=== PATIENT | male | born 1955 | race Caucasian/White ===

== ENCOUNTER → 2016-09-27 | Outpatient (CLI) | payer BC ==
[~2016-09-27] MED LIST: AMOX1TAB43 PO; ASPI-435 PO; ATOR-26 PO; BNC40 PO; CYAN10005 PO; DULO60CA44 PO; HYDR200T5 PO; HYDR25TA4 PO; LEFL10TA PO; LISI10TA PO; MELO15TA4 PO; METF-382 PO; METH1TAB81 PO; METO1TAB69 PO; OMEP20CA9 PO; SERT-234 PO; TERB250T47 PO
--- NOTE | 2016-09-27 14:01 | DIAGNOSTIC IMAGING REPORT ---
TWO VIEW CHEST CLINICAL HISTORY: Dyspnea on exertion. FINDINGS: PA and lateral chest radiographs are compared to study dated 10/10/2014 and correlated with chest CT dated 11/04/2012. The heart is mildly enlarged. The pulmonary vasculature is noncongested. There is chronic elevation of the right hemidiaphragm and bibasilar atelectasis. No airspace consolidation or pleural effusion is seen. There is no pneumothorax. The skeletal structures are osteopenic. Degenerative change is noted in the thoracic spine. Erosion of the distal right clavicle is unchanged from previous. IMPRESSION: Mild cardiac enlargement with no active disease in the chest. Electronically signed by: David Morris M.D. 09/27/2016 1:59 PM Dictated Date/Time: 09/27/2016 1:56 PM
[2016-09-27 15:18] LABS: BLOOD UREA NITROGEN 20 mg/dl (7-18)
--- NOTE | 2016-09-27 15:39 | DIAGNOSTIC IMAGING REPORT ---
CT ANGIOGRAM OF THE CHEST CLINICAL HISTORY: Dyspnea on exertion. COMPARISON STUDY: Chest CT dated 11/04/2012. TECHNIQUE: Following the IV administration of 107 cc of Optiray 320, CT angiogram of the chest was performed from the upper abdomen to the thoracic inlet utilizing the pulmonary embolus protocol. Images are reviewed in the axial, sagittal, and coronal planes. 3-D MIPS images are created and assessed. IV contrast was administered without complication. CT DOSE: 489.53 mGycm FINDINGS: Thyroid: Imaged portions of the thyroid gland are normal in size and attenuation. Thoracic aorta: The thoracic aorta is normal in caliber and demonstrates standard 3-vessel arch anatomy. The thoracic aorta is not well opacified. Pulmonary vasculature: The pulmonary trunk is normal in caliber. There are no filling defects identified in main, lobar, or segmental pulmonary branches to suggest pulmonary embolus. Heart: The heart is enlarged and there is a small pericardial effusion. Lungs and pleural spaces: There is bibasilar atelectasis. No airspace consolidation or pleural effusion is identified. A 3 mm right lower lobe pulmonary nodule seen on image #90 is unchanged from 2013 and of doubtful significance. The trachea and central airways are clear. Mediastinum: There is no mediastinal lymphadenopathy. Marlen: Clear. Axillae: There is no axillary lymphadenopathy. Upper abdomen: Partially visualized upper abdominal viscera is within normal limits. Skeletal structures: The skeletal structures are osteopenic. Degenerative change is noted throughout the thoracic spine. No lytic or blastic bony lesions are seen. IMPRESSION: 1. There is no evidence of pulmonary embolus in the main, lobar, or segmental pulmonary arteries. 2. Cardiomegaly noting a small pericardial effusion. 3. Dependent atelectasis is noted. There is no airspace consolidation or pleural effusion. Electronically signed by: David Morris M.D. 09/27/2016 3:37 PM Dictated Date/Time: 09/27/2016 3:33 PM
== END | disposition home or self-care (01) ==
LOC: C.CTS 13:35
PROVIDERS: ATTEND Internal Medicine
DX: E11.9 Type 2 diabetes mellitus without complications (principal); R06.02 Shortness of breath; I51.7 Cardiomegaly; I31.3 Pericardial effusion (noninflammatory); J98.11 Atelectasis

== ENCOUNTER → 2016-09-29 | Outpatient (CLI) | payer BC ==
[2016-09-29 15:54] LABS: BASO % 0.8 %; BASO ABS # 0.05 K/uL (0-0.2); COMPLETE YES; HEMATOCRIT 39.4 % (42-52); IG% 0.2 %; LYMPH % 24.6 %; LYMPH ABS # 1.48 K/uL (1.2-3.4); MEAN CELL VOLUME 82.3 fL (80-100); MEAN CORPUSCULAR HEMOGLOBIN 28.6 pg (25-34); MEAN CORPUSCULAR HGB CONC 34.8 g/dl (32-36); MEAN PLATELET VOLUME 11.6 fL (7.4-10.4); MONO % 7.8 %; NEUT % 62.6 %; PLATELET COUNT 132 K/uL (130-400); RED BLOOD COUNT 4.79 M/uL (4.7-6.1); WHITE BLOOD COUNT 6.01 K/uL (4.8-10.8)
[2016-09-29 18:45] LABS: ALKALINE PHOSPHATASE 80 U/L (45-117); ALT/SGPT 34 U/L (12-78); AST/SGOT 25 U/L (15-37)
== END | disposition home or self-care (01) ==
LOC: C.LAB 14:20
PROVIDERS: ATTEND Internal Medicine Rheumatology
DX: R76.8 Other specified abnormal immunological findings in serum (principal); M05.9 Rheumatoid arthritis with rheumatoid factor, unspecified; Z79.899 Other long term (current) drug therapy

== ENCOUNTER → 2016-10-21 | Outpatient (CLI) | payer BC ==
[~2016-10-21] MED LIST changes: +REGADENOSON 0.4 MG/5 ML SYR ONE
--- NOTE | 2016-10-24 19:22 | MYOCARDIAL PERFUSION SCAN ---
ORDERING PHYSICIAN: Talon Dao M.D. PRIMARY CARE PHYSICIAN: Nolberto Maurice M.D. PROCEDURE: 1. Myocardial perfusion study performed in multiple views/images. 2. Lexiscan pharmacologic stress ECG. INDICATIONS: Shortness of breath. ELECTROCARDIOGRAM AND VITALS: Baseline ECG showed sinus rhythm and was unremarkable. Lexiscan ECG demonstrated no significant ST changes. No dysrhythmias. No chest pain reported. Baseline BP was elevated at 192/105 mmHg. During pharmacologic stress, BP was 194/94 mmHg. PROCEDURAL DETAILS: For the stress portion of the study, Lexiscan 0.4 mg was intravenously administered over 10-15 seconds followed by saline flush. This was followed by 33.1 mCi of Tc-99m Cardiolite IV injected at 0913 a.m. on 10/21/2016. 30 minutes following the injection, imaging of the heart was performed in multiple projections. For the rest portion of the study, 11.2 mCi of Tc-99m Cardiolite was injected IV at 0725 a.m. One hour following the injection, imaging of the heart was performed in the same projections. FINDINGS: Rotating raw imaging demonstrated no significant motion artifact. Heart appeared mildly dilated. There was no significant lung uptake. Myocardial perfusion demonstrated a small apicolateral reversible defect. Based on review of the rotating images, this may represent diaphragmatic attenuation, however a small area of distal LAD ischemia could not be excluded. No fixed defects seen. WALL MOTION: Normal left ventricular size with mild global hypokinesis. Calculated ejection fraction was 41%. IMPRESSION: 1. Abnormal myocardial perfusion suggesting a small area of apicolateral ischemia versus attenuation artifact. 2. Moderately reduced ejection fraction with mild global hypokinesis (EF=41%). 3. No chest pain. 4. Hypertension noted. 5. No dysrhythmias. 6. Negative Lexiscan ECG. [facility]
== END | disposition home or self-care (01) ==
LOC: C.NUCL 06:37
PROVIDERS: ATTEND Internal Medicine Cardiovascular Disease
DX: R06.02 Shortness of breath (principal); M19.90 Unspecified osteoarthritis, unspecified site

== ENCOUNTER → 2016-11-04 | Outpatient (CLI) | payer BC ==
[~2016-11-04] MED LIST changes: -REGADENOSON 0.4 MG/5 ML SYR ONE
[2016-11-04 13:18] LABS: BASO % 0.8 %; BASO ABS # 0.03 K/uL (0-0.2); COMPLETE YES; EOS % 5.9 %; HEMATOCRIT 41.7 % (42-52); IG% 0.5 %; LYMPH % 36.4 %; LYMPH ABS # 1.41 K/uL (1.2-3.4); MEAN CELL VOLUME 84.9 fL (80-100); MEAN CORPUSCULAR HEMOGLOBIN 28.7 pg (25-34); MEAN CORPUSCULAR HGB CONC 33.8 g/dl (32-36); MEAN PLATELET VOLUME 11.2 fL (7.4-10.4); MONO % 8.8 %; NEUT % 47.6 %; PLATELET COUNT 126 K/uL (130-400); RED BLOOD COUNT 4.91 M/uL (4.7-6.1); WHITE BLOOD COUNT 3.87 K/uL (4.8-10.8)
[2016-11-04 13:25] LABS: PARTIAL THROMBOPLASTIN RATIO 1.1; PROTHROMBIN TIME (PATIENT) 10.6 SECONDS (9.0-12.0)
[2016-11-04 13:49] LABS: BLOOD UREA NITROGEN 22 mg/dl (7-18); BUN/CREATININE RATIO 18.6 (10-20); CALCIUM 8.7 mg/dl (8.5-10.1); CARBON DIOXIDE 28 mmol/L (21-32); CHLORIDE 103 mmol/L (98-107); GLUCOSE 167 mg/dl (70-99); SODIUM 142 mmol/L (136-145)
== END | disposition home or self-care (01) ==
LOC: C.LAB 11:38
PROVIDERS: ATTEND Internal Medicine
DX: Z01.818 Encounter for other preprocedural examination (principal); M06.4 Inflammatory polyarthropathy

== ENCOUNTER → 2016-11-09 | Day surgery (SDC) | payer BC ==
[~2016-11-09] VITALS: Ht 175.3 cm; Wt 108.5 kg
[~2016-11-09] MED LIST changes: +FENTANYL CITRATE INJ 50 MCG/1 ML 2 ML VIAL ONE; +HEPARIN SOD (PORCINE) 1000 UNIT/ML 10 ML VIAL ONE; +MIDAZOLAM HCL 1 MG/ML 2ML VIAL ONE; +NITROGLYCERIN/D5W 100MCG/ML 20ML SYR ONE; +NiCARDipine HCL INJ 2.5 MG/ML 10 ML AMP ONE
[2016-11-09 09:57] VITALS: Ht 175.3 cm; Wt 108.5 kg
[2016-11-09 10:06] VITALS: BP 168/80; PULSE 59; TEMP 36.5; O2SAT 96
--- NOTE | 2016-11-09 11:11 | History & Physical Bridge Note ---
H&P Re-Evaluation Bridge Note: I have examined the patient, reviewed the History & Physical and in the interval since the performance of the History & Physical I have noted the following changes of clinical significance: No changes noted
--- NOTE | 2016-11-09 11:12 | Procedure Note ---
Pre-Mod Sedation Assessment General Date of Moderate Sedation: Nov 09, 2016. Vital Signs: Vital Signs Past 12 Hours Date Time Temp Pulse Resp B/P Pulse Ox O2 Delivery O2 Flow Rate FiO2 11/09/16 10:06 36.5 59 16 168/80 96 Room Air Review Cardiovascular: regular rate, rhythm, no edema, no gallop Abdomen: soft Lungs: chest non-tender, lungs clear, no respiratory distress Airway Class: II Pre-Sedation Airway Assessment Oral Cavity: Dentures Able to Visualize Vocal Cords: Yes Short Thick Neck: No Hx of Sleep Apnea: No Smoking Status: Former Smoker Mallampati Classification: Class II ASA Classification: Class II Procedure Planning Contraindications-for Mod Sed: None Yes Notes The planned sedation has been discussed with the patient and consent obtained. I have identified the patient, determined the appropriateness of sedation and have assessed the patient immediately prior to the procedure. All medicine(s) and interventions are by my order.
--- NOTE | 2016-11-09 11:37 | Procedure Note ---
Post-Mod Sedation Assessment General Date of Moderate Sedation Nov 09, 2016. Vital Signs: Vital Signs Past 12 Hours Date Time Temp Pulse Resp B/P Pulse Ox O2 Delivery O2 Flow Rate FiO2 11/09/16 10:06 36.5 59 16 168/80 96 Room Air Review - Discharge Criteria Vital Signs Stable: Yes Alert/Oriented/Conversant: Yes Returned to Baseline Mental St: Yes Nausea Absent/Minimal: Yes Pain/Discomfort/Absent/Minimal: Yes Normal/Baseline Respirations: Yes Active Bleeding?: No Pt Received D/C Instructions: Yes Prescriptions Given: None Specific Proced. D/C Criteria Distal Pulses Present (Cardiac: Yes Groin site assessed-Card Cath: N/A Voided Prior To Discharge: Yes Discharged Patients Adult Escort/Transportation: Yes
--- NOTE | 2016-11-09 11:50 | Discharge Instructions ---
Discharge Instructions Procedure Procedure Date: Nov 09, 2016. Reason for Visit: Chest Pain Dr Wynn To Do. Discharge Discharge Date: Nov 09, 2016. Last Recorded Wt (Kilograms): 108.5 Medications Stopped Medication(s): Hold metformin for 48 hours Instructions Allergies: Coded Allergies: LETICIA Inhibitors (Unverified Allergy, Intermediate, SHORTNESS OF BREATH, 03/23) Follow Up Additional Instructions: ACTIVITY RECOMMENDATIONS: It is common to feel weak and fatigue for a few days. * Do not drive or operate any motorized equipment for the next three days. * Limit stair usage (2 or 3 trips a day only) for the next three days. * Do not lift anything heavier than 10 pounds for the next three days. * Do not engage in vigorous exercise or any sports for the next five days. * You may shower the day after your procedure, but do not immerse the area for three days. Cleanse the site gently with soap and water. SPECIAL CARE INSTRUCTIONS: * You may replace the pressure dressing or band-aid the morning after the procedure. * After your procedure, it is normal to have a small bruise or small lump at the site. Examine your site daily for any change in the bruise or lump, redness, swelling, drainage or numbness. Notify your doctor if any change. BLEEDING: * If there is a small amount of bleeding at the site, lie down and apply firm pressure with a clean cloth for ten minutes. When the bleeding stops, lie quietly keeping the procedure limb straight for six hours. Notify your doctor as soon as possible. * If the bleeding does not stop after ten minutes or if there is a large amount of bleeding or spurting, call 911 immediately. Continue to lie down and hold firm pressure until help arrives. SKIN IRRITATION: * You may experience some redness and/or swelling in the area where radiation was administered. If any skin irritation occurs, please contact your family physician. FOLLOW UP VISIT: Keep any scheduled doctor appointments. Follow-up with: As scheduled with Neelam Croft in [facility] Recommendations: Call your doctor if: * Temperature above 101 degrees * Pain not relieved by pain medicine ordered * There is increased drainage or redness from any incision * You have any unanswered questions or concerns. Your Doctors Instructions noted above were prepared by provider Gregory Wynn. Patient Signature Section: Patient Instructions Signature Page Ramone Sun Patient (or Guardian) Signature/Date: I have read and understand the instructions given to me by my caregivers. Caregiver/RN/Doctor Signature/Date: The above-named patient and/or guardian has received patient instructions on this date. + Original Patient Signature Page (only) stays with chart. Please make copy for patient.
--- NOTE | 2016-11-09 12:01 | Cardiac Catheterization ---
Procedure Note Procedure Date Nov 09, 2016. Pre-Procedure Diagnosis Angina, Positive Stress Test AUC Score 7 Post-Procedure Diagnosis Mild CAD, Elevated Intracardiac Pressures Procedure(s) Performed Coronary Angiography, Left Heart Cath Manager Voice Dr. Wynn Hamper Maker Machine(s) Óscar Estimated Blood Loss 10 Medication(s) Fentanyl, Heparin, Nicardipine, Nitroglycerin, Versed, Lidocaine 1% Summary of Findings Indication: Chest pain/ Positive stress test Access: 6Fr Right Radial Artery Catheters: [place], JR4 Findings: LM - Short, angiographically normal LAD - Moderate caliber, 10-20% ostial stenosis, luminal irregularities, tapers in mid segment Circumflex - Large, non-dominant, angiographically normal RCA - Dominant, angiographically normal LVEDP - 22 Arterial Closure: TR Band Summary: 1. Minimal coronary artery disease (False positive stress test) - 10-20% ostial LAD otherwise vessels are angiographically normal and unchanged from 2013 2. Elevated intracardiac filling pressures (LVEDP 22) Recommendations: Improved blood pressure control - will increase recently started lisinopril from 5mg to 10mg Continue current metoprolol, statin, and aspirin. Follow-up with Cardiology clinic as scheduled. Hemodynamics Rest Ao: 163/96/125 Final Ao: 180/94/129 LV: 164/22 Recommendations Medical therapy and/or Counseling Specimens None Radiation Exposure (mGy) 1008 Contrast (mls) 80 Fluids (cc crystalloids) 59 Drains none Anesthesia moderate Procedural Complication(s) None Disposition Line Service Technician Holding/Recovery ACC Data Cardiac Status Clinical evaluation leading to the procedure CAD Presntation: Positive Stress Test Anginal Classification: CCS III Heart Failure: No, NYHA Class: CCS I Cardiogenic Shock w/in 24Hrs: No Cardiac Arrest w/in 24Hrs: No Imaging studies past 6 months: Yes Stress studies past 6 months: Yes Standard Exercise Stress Test: No Stress Echocardiogram: No Stress Testing w/SPECT MPI: Yes - Positive Cardiac CTA: No Coronary Anatomy Dominant: Right Left Main (% Stenosis): Normal LAD (% Stenosis): Ostial (10-20) Circumflex (% Stenosis): Normal RCA (% Stenosis): Normal Diagnostic Physician's Name: Nolberto Wynn MD Closure Device Percutaneous Entry Location: Radial Closure Device: Radial Band Recommendations: Medical therapy and/or Counseling Intraprocedure Events Significant Dissection: No Perforation: No
[2016-11-09 14:00] VITALS: BP 142/92; PULSE 63; O2SAT 95
== END | disposition home or self-care (01) ==
LOC: C.CATH 09:38
PROVIDERS: ATTEND Internal Medicine Interventional Cardiology
DX: I25.119 Atherosclerotic heart disease of native coronary artery with unspecified angina pectoris (principal); I10 Essential (primary) hypertension; R06.02 Shortness of breath; D64.9 Anemia, unspecified; N40.0 Benign prostatic hyperplasia without lower urinary tract symptoms; K76.0 Fatty (change of) liver, not elsewhere classified; Z79.899 Other long term (current) drug therapy; E11.9 Type 2 diabetes mellitus without complications; R25.1 Tremor, unspecified; M35.00 Sjogren syndrome, unspecified; M05.9 Rheumatoid arthritis with rheumatoid factor, unspecified; Z87.891 Personal history of nicotine dependence

== ENCOUNTER → 2016-12-29 | Outpatient (CLI) | payer BC ==
[~2016-12-29] MED LIST changes: -AMOX1TAB43 PO; -BNC40 PO; -FENTANYL CITRATE INJ 50 MCG/1 ML 2 ML VIAL ONE; -HEPARIN SOD (PORCINE) 1000 UNIT/ML 10 ML VIAL ONE; +METO100T44 PO; -METO1TAB69 PO; -MIDAZOLAM HCL 1 MG/ML 2ML VIAL ONE; -NITROGLYCERIN/D5W 100MCG/ML 20ML SYR ONE; -NiCARDipine HCL INJ 2.5 MG/ML 10 ML AMP ONE
--- NOTE | 2016-12-29 12:10 | DIAGNOSTIC IMAGING REPORT ---
LEFT FOOT MIN 3 VIEWS ROUTINE CLINICAL HISTORY: M15.9 Generalized osteoarthritis of handM35.00 Secondary Sjogren COMPARISON: None. DISCUSSION: The bones and joint spaces appear intact. There is no evidence of fracture, dislocation or bony disease. There is no evidence for soft tissue swelling. IMPRESSION: Negative study. Electronically signed by: Monico Alexis M.D. 12/29/2016 12:08 PM Dictated Date/Time: 12/29/2016 12:06 PM
--- NOTE | 2016-12-29 12:25 | DIAGNOSTIC IMAGING REPORT ---
LEFT FOOT 3 VIEWS HISTORY: M15.9 Generalized osteoarthritis of handM35.00 Secondary Sjogren Right COMPARISON: None. FINDINGS: There is no fracture or dislocation. Soft tissues are unremarkable. Bone mineralization is intact. The Lisfranc joint is well aligned. No erosions identified. Small plantar heel spur. Small dorsal osteophytes within the talus and the navicular bones. Minimal degenerative changes at the first MTP joint. IMPRESSION: Minimal osteoarthritis. Small plantar heel spur. Electronically signed by: Kelvin Hubbard M.D. 12/29/2016 12:23 PM Dictated Date/Time: 12/29/2016 12:21 PM
[2016-12-29 12:31] LABS: BASO ABS # 0.05 K/uL (0-0.2); COMPLETE YES; EOS % 6.3 %; HEMATOCRIT 44.9 % (42-52); IG% 0.2 %; LYMPH % 35.6 %; MEAN CELL VOLUME 81.2 fL (80-100); MEAN CORPUSCULAR HEMOGLOBIN 28.6 pg (25-34); MEAN CORPUSCULAR HGB CONC 35.2 g/dl (32-36); MEAN PLATELET VOLUME 10.6 fL (7.4-10.4); MONO % 6.5 %; NEUT % 50.4 %; PLATELET COUNT 149 K/uL (130-400); RED BLOOD COUNT 5.53 M/uL (4.7-6.1); WHITE BLOOD COUNT 4.77 K/uL (4.8-10.8)
[2016-12-29 13:49] LABS: ALKALINE PHOSPHATASE 82 U/L (45-117); ALT/SGPT 43 U/L (12-78); AST/SGOT 23 U/L (15-37); BLOOD UREA NITROGEN 24 mg/dl (7-18); BUN/CREATININE RATIO 19.8 (10-20); CALCIUM 9.2 mg/dl (8.5-10.1); CARBON DIOXIDE 23 mmol/L (21-32); CHLORIDE 104 mmol/L (98-107); GLUCOSE 110 mg/dl (70-99); POTASSIUM 3.9 mmol/L (3.5-5.1); SODIUM 137 mmol/L (136-145)
[2016-12-29 13:51] LABS: RHEUMATOID FACTOR < 10.0 U/mL (0-15)
== END ==
LOC: C.RAD1850 11:27
PROVIDERS: ATTEND Internal Medicine Rheumatology
DX: M35.00 Sjogren syndrome, unspecified (principal); M15.9 Polyosteoarthritis, unspecified; Z79.899 Other long term (current) drug therapy; I10 Essential (primary) hypertension; M05.741 Rheumatoid arthritis with rheumatoid factor of right hand without organ or systems involvement; M77.32 Calcaneal spur, left foot; M77.31 Calcaneal spur, right foot

== ENCOUNTER → 2017-02-14 | Outpatient (CLI) | payer BC ==
[2017-02-14 18:12] LABS: BLOOD UREA NITROGEN 34 mg/dl (7-18); BUN/CREATININE RATIO 22.4 (10-20); CARBON DIOXIDE 23 mmol/L (21-32); CHLORIDE 105 mmol/L (98-107); GLUCOSE 151 mg/dl (70-99); POTASSIUM 4.1 mmol/L (3.5-5.1); SODIUM 138 mmol/L (136-145)
[2017-02-14 18:43] LABS: LYME DISEASE AB IGG NEG (NEG); LYME DISEASE AB IGM NEG (NEG)
== END | disposition home or self-care (01) ==
LOC: C.LABBFT 14:29
PROVIDERS: ATTEND Physician Assistant Medical
DX: I10 Essential (primary) hypertension (principal); R53.83 Other fatigue

== ENCOUNTER → 2017-03-20 | Outpatient (CLI) | payer BC ==
[~2017-03-20] MED LIST changes: -METO100T44 PO; +METO1TAB69 PO
[2017-03-20 12:29] LABS: BASO % 1.2 %; BASO ABS # 0.05 K/uL (0-0.2); COMPLETE YES; EOS % 4.7 %; HEMATOCRIT 40.9 % (42-52); IG% 0.5 %; LYMPH % 32.6 %; LYMPH ABS # 1.39 K/uL (1.2-3.4); MEAN CELL VOLUME 85.9 fL (80-100); MEAN CORPUSCULAR HEMOGLOBIN 28.6 pg (25-34); MEAN CORPUSCULAR HGB CONC 33.3 g/dl (32-36); MONO % 12.2 %; NEUT % 48.8 %; PLATELET COUNT 152 K/uL (130-400); RED BLOOD COUNT 4.76 M/uL (4.7-6.1); WHITE BLOOD COUNT 4.26 K/uL (4.8-10.8)
[2017-03-20 13:07] LABS: ALT/SGPT 34 U/L (12-78); AST/SGOT 20 U/L (15-37); BLOOD UREA NITROGEN 22 mg/dl (7-18); BUN/CREATININE RATIO 17.1 (10-20); CALCIUM 8.9 mg/dl (8.5-10.1); CARBON DIOXIDE 21 mmol/L (21-32); CHLORIDE 107 mmol/L (98-107); GLUCOSE 132 mg/dl (70-99); POTASSIUM 4.2 mmol/L (3.5-5.1); SODIUM 138 mmol/L (136-145)
[2017-03-20 13:09] LABS: ALKALINE PHOSPHATASE 81 U/L (45-117)
== END | disposition home or self-care (01) ==
LOC: C.LABBFT 08:04
PROVIDERS: ATTEND Internal Medicine Rheumatology
DX: I10 Essential (primary) hypertension (principal); Z79.899 Other long term (current) drug therapy; M05.741 Rheumatoid arthritis with rheumatoid factor of right hand without organ or systems involvement; M05.742 Rheumatoid arthritis with rheumatoid factor of left hand without organ or systems involvement

== ENCOUNTER → 2017-05-18 | Outpatient (CLI) | payer BC | END | disposition home or self-care (01) | LOC: C.LABBFT 07:47 | PROVIDERS: ATTEND Urology | DX: N40.1 Benign prostatic hyperplasia with lower urinary tract symptoms (principal) ==

== ENCOUNTER → 2017-05-29 | Outpatient (CLI) | payer BC ==
[2017-05-29 12:17] LABS: BASO % 0.6 %; BASO ABS # 0.03 K/uL (0-0.2); COMPLETE YES; EOS % 2.3 %; HEMATOCRIT 41.8 % (42-52); IG% 0.2 %; LYMPH % 26.7 %; MEAN CELL VOLUME 84.4 fL (80-100); MEAN CORPUSCULAR HEMOGLOBIN 28.9 pg (25-34); MEAN CORPUSCULAR HGB CONC 34.2 g/dl (32-36); MONO % 5.9 %; NEUT % 64.3 %; PLATELET COUNT 159 K/uL (130-400); RED BLOOD COUNT 4.95 M/uL (4.7-6.1); WHITE BLOOD COUNT 5.25 K/uL (4.8-10.8)
[2017-05-29 12:54] LABS: ALT/SGPT 34 U/L (12-78); AST/SGOT 18 U/L (15-37)
[2017-05-29 12:56] LABS: ALKALINE PHOSPHATASE 74 U/L (45-117)
== END | disposition home or self-care (01) ==
LOC: C.LAB1850 11:16
PROVIDERS: ATTEND Internal Medicine Rheumatology
DX: M35.00 Sjogren syndrome, unspecified (principal); M05.741 Rheumatoid arthritis with rheumatoid factor of right hand without organ or systems involvement; Z79.899 Other long term (current) drug therapy

== ENCOUNTER → 2017-06-12 | Outpatient (CLI) | payer BC ==
[2017-06-12 17:43] LABS: CHOLESTEROL/HDL RATIO 4.4
[2017-06-12 18:03] LABS: RATIO 7.3 mcg/mg (0-30.0)
[2017-06-13 07:16] LABS: ESTIMATED AVERAGE GLUCOSE 148 mg/dl; HA1C FLAG Normal (Normal)
== END | disposition home or self-care (01) ==
LOC: C.LABBFT 14:36
PROVIDERS: ATTEND Internal Medicine
DX: E11.9 Type 2 diabetes mellitus without complications (principal); E78.5 Hyperlipidemia, unspecified

== ENCOUNTER → 2017-10-18 | Outpatient (CLI) | payer OTHER ==
[~2017-10-18] MED LIST changes: +METO100T44 PO; -METO1TAB69 PO
[2017-10-18 13:10] LABS: BASO % 0.8 %; BASO ABS # 0.04 K/uL (0-0.2); EOS % 3.4 %; EOS ABS # 0.17 K/uL (0-0.5); HEMATOCRIT 42.1 % (42-52); HEMOGLOBIN 14.4 g/dL (14.0-18.0); IG# 0.01 K/uL (0.00-0.02); LYMPH % 28.8 %; LYMPH ABS # 1.46 K/uL (1.2-3.4); MEAN CELL VOLUME 87.7 fL (80-100); MEAN CORPUSCULAR HGB CONC 34.2 g/dl (32-36); MEAN PLATELET VOLUME 11.3 fL (7.4-10.4); MONO % 5.5 %; MONO ABS # 0.28 K/uL (0.11-0.59); NEUT % 61.3 %; NEUT ABS # 3.11 K/uL (1.4-6.5); PLATELET COUNT 135 K/uL (130-400); RED CELL DISTRIBUTION WIDTH CV 13.5 % (11.5-14.5); WHITE BLOOD COUNT 5.07 K/uL (4.8-10.8)
[2017-10-18 13:34] LABS: HEMOGLOBIN A1C 6.8 % (4.5-5.6)
[2017-10-18 13:55] LABS: ALT/SGPT 40 U/L (12-78); AST/SGOT 23 U/L (15-37); BLOOD UREA NITROGEN 22 mg/dl (7-18); CARBON DIOXIDE 23 mmol/L (21-32); CREATININE 1.27 mg/dl (0.60-1.40); GLUCOSE 149 mg/dl (70-99); POTASSIUM 4.4 mmol/L (3.5-5.1); SODIUM 134 mmol/L (136-145)
[2017-10-18 14:07] LABS: ALKALINE PHOSPHATASE 90 U/L (45-117); CHOLESTEROL 105 mg/dl (0-200); LDL CHOLESTEROL CALCULATED 31 mg/dl; TOTAL PROTEIN 7.8 gm/dl (6.4-8.2)
== END | disposition home or self-care (01) ==
LOC: C.LABBFT 07:23
PROVIDERS: ATTEND Internal Medicine
DX: N52.9 Male erectile dysfunction, unspecified (principal); E11.9 Type 2 diabetes mellitus without complications; I10 Essential (primary) hypertension; E78.5 Hyperlipidemia, unspecified; M35.00 Sjogren syndrome, unspecified; K21.9 Gastro-esophageal reflux disease without esophagitis; Z79.899 Other long term (current) drug therapy; M05.741 Rheumatoid arthritis with rheumatoid factor of right hand without organ or systems involvement

== ENCOUNTER → 2018-04-24 | Outpatient (CLI) | payer OTHER ==
[~2018-04-24] MED LIST changes: -ATOR-26 PO; +CYM60 PO; -DULO60CA44 PO; +FLV1 PO; -LEFL10TA PO; -LISI10TA PO; +LOSA100T65 PO; +MELO-83 PO; -MELO15TA4 PO; -METF-382 PO; +METF500T5 PO; -METH1TAB81 PO; -METO100T44 PO; +METO200T31 PO; +MTH25 PO; +NRV/10 PO; -OMEP20CA9 PO; +ROSU40TA19 PO; -SERT-234 PO; -TERB250T47 PO; +URX/10 PO; +VALS-59 PO; +ZLF/100 PO
--- NOTE | 2018-04-24 08:15 | DIAGNOSTIC IMAGING REPORT ---
DUPLEX RENAL ARTERY CLINICAL HISTORY: I10 Hypertension hypertension TECHNIQUE: Arterial Doppler COMPARISON STUDY: None FINDINGS: Velocity characteristics are unremarkable bilaterally. No abnormal increase in resistive indices. Right kidney measures 10.5 cm maximum dimension with the left kidney 11.0 cm. Bilateral nonobstructing nephrocalcinosis is present. IMPRESSION: No evidence for renal arterial stenosis. The above report was generated using voice recognition software. It may contain grammatical, syntax or spelling errors. Electronically signed by: Monico Alexis M.D. 04/24/2018 8:14 AM Dictated Date/Time: 04/24/2018 8:13 AM
== END | disposition home or self-care (01) ==
LOC: C.ULTR 07:32
PROVIDERS: ATTEND Nurse Practitioner
DX: I10 Essential (primary) hypertension (principal)

== ENCOUNTER → 2018-05-02 | Day surgery (SDC) | payer OTHER ==
[2018-04-25 08:35] VITALS: Ht 175.3 cm; Wt 118.0 kg
[~2018-05-02] VITALS: Ht 175.3 cm; Wt 118.0 kg
[~2018-05-02] MED LIST changes: +CLON0.2T PO; +LIDOCAINE HCL 2% 2 ML VIAL (20MG/ML) ONE; +MIDAZOLAM HCL 1 MG/ML 2ML VIAL ONE; +ONDANSETRON INJ 2 MG/ML 2 ML VIAL ONE; +PROPOFOL IV EMULSION 10 MG/ML 20 ML VIAL ONE; +SODIUM CHLORIDE 0.9% 500ML 500 ML IV ONE; -VALS-59 PO
--- NOTE | 2018-05-02 14:09 | Endo History and Physical ---
History & Physical Date of Service: May 02, 2018. Chief Complaint: Barretts esophagus Referring Physician: Dr. 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 Past Medical History Arthritis, Gastrointestinal Disorder, High Cholesterol, Hypertension, Chronic Steroid Use Past Surgical History Hx Cardiac Surgery: Yes (HEART CATH, NO STENT) Hx Internal Defibrillator: No Hx Pacemaker: No Hx Abdominal Surgery: Yes (4-5 RT INGUINAL HERNIA REPAIRS) Hx Post-Op Nausea and Vomiting: No Hx Cancer Surgery: No Hx Thoracic Surgery: No Hx Orthopedic: Yes (RT SHOULDER SURGERY REPAIR) Hx Urinary Tract Surgery: No Family History None Social History Smoking Status: Former Smoker Hx Substance Use: No Hx Alcohol Use: No Allergies Coded Allergies: LETICIA Inhibitors (Verified Allergy, Intermediate, SHORTNESS OF BREATH, ) Current Medications Reported Home Medications Medications Dose Route/Sig Max Daily Dose Days Date Category Dose Instructions Cozaar (Losartan Potassium) 100 Mg Tab 100 Mg PO QAM 04/04/18 Reported Rosuvastatin Calcium 40 Mg Tab 40 Mg PO QAM 04/04/18 Reported Methotrexate 2.5 Mg Tab 7.5 Mg PO WK 04/04/18 Reported TAKE 3 TABLETS EVERY MONDAY Folic Acid 1 Mg Tab 1 Mg PO DAILY 04/04/18 Reported Duloxetine HCl 60 Mg Cap 60 Mg PO QAM 04/04/18 Reported Sertraline HCl 100 Mg Tab 150 Mg PO QAM 04/04/18 Reported Alfuzosin HCl ER (Alfuzosin HCl) 10 Mg Tab 10 Mg PO HS 04/04/18 Reported Amlodipine Besylate 10 Mg Tab 10 Mg PO QAM 04/04/18 Reported Toprol Xl (Metoprolol Succinate) 200 Mg Tab 200 Mg PO QAM 04/04/18 Reported Glucophage Er (Metformin HCl) 500 Mg Tab 500 Mg PO BID 04/04/18 Reported Vitamin B-12 (Cyanocobalamin) 1,000 Mcg Tab 1,000 Mcg PO DAILY 11/09/16 Reported Aspirin 81 (Aspirin) 81 Mg Tab 81 Mg PO QAM 01/21/16 Reported Meloxicam 15 Mg Tab 15 Mg PO QAM 01/21/16 Reported Plaquenil (Hydroxychloroquine Sulfate) 200 Mg Tab 200 Mg PO BIDM 01/21/16 Reported Hctz (Hydrochlorothiazide) 25 Mg Tab 25 Mg PO QAM 04/15/14 Reported Vital Signs Weight (Kilograms): 118 Height (Feet): 5 Height (Inches): 9 Date Time Temp Pulse Resp B/P (MAP) Pulse Ox O2 Delivery O2 Flow Rate FiO2 05/02/18 13:43 36.8 56 16 164/98 (120) 96 Room Air Physical Exam General Appearance: WD/WN, no apparent distress Respiratory/Chest: Auscultation: breath sounds normal Cardiovascular: Heart Auscultation: RRR Abdomen: Bowel Sounds: normal Inspection & Palpation: soft, non-distended, no tenderness, guarding & rebound Assessment and Plan Assessment: 62 yo CM who presents for 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 Plan: Proceed with EGD.
--- NOTE | 2018-05-02 14:44 | Discharge Instructions ---
Endoscopy Patient Instructions Date / Procedure(s) Performed May 02, 2018. EGD Allergy Information Coded Allergies: LETICIA Inhibitors (Verified Allergy, Intermediate, SHORTNESS OF BREATH, ) Discharge Date / Findings May 02, 2018. Valdez's Esophagus s/p biopsies Gastric ulcer Gastric antrum biopsies Medication Instructions Stopped Medication(s): Patient only took his 3 bp meds this am. 1) Start Pantoprazole 40mg by mouth each morning 1/2 hour prior to breakfast. 2) OK to resume all medications today as prescribed Reported Home Medications Medications Dose Route/Sig Max Daily Dose Days Date Category Dose Instructions Cozaar (Losartan Potassium) 100 Mg Tab 100 Mg PO QAM 04/04/18 Reported Rosuvastatin Calcium 40 Mg Tab 40 Mg PO QAM 04/04/18 Reported Methotrexate 2.5 Mg Tab 7.5 Mg PO WK 04/04/18 Reported TAKE 3 TABLETS EVERY MONDAY Folic Acid 1 Mg Tab 1 Mg PO DAILY 04/04/18 Reported Duloxetine HCl 60 Mg Cap 60 Mg PO QAM 04/04/18 Reported Sertraline HCl 100 Mg Tab 150 Mg PO QAM 04/04/18 Reported Alfuzosin HCl ER (Alfuzosin HCl) 10 Mg Tab 10 Mg PO HS 04/04/18 Reported Amlodipine Besylate 10 Mg Tab 10 Mg PO QAM 04/04/18 Reported Toprol Xl (Metoprolol Succinate) 200 Mg Tab 200 Mg PO QAM 04/04/18 Reported Glucophage Er (Metformin HCl) 500 Mg Tab 500 Mg PO BID 04/04/18 Reported Vitamin B-12 (Cyanocobalamin) 1,000 Mcg Tab 1,000 Mcg PO DAILY 11/09/16 Reported Aspirin 81 (Aspirin) 81 Mg Tab 81 Mg PO QAM 01/21/16 Reported Meloxicam 15 Mg Tab 15 Mg PO QAM 01/21/16 Reported Plaquenil (Hydroxychloroquine Sulfate) 200 Mg Tab 200 Mg PO BIDM 01/21/16 Reported Hctz (Hydrochlorothiazide) 25 Mg Tab 25 Mg PO QAM 04/15/14 Reported Provider Instructions Activity Restrictions - No exercising or heavy lifting for 24 hours. - Do not drink alcohol the day of the procedure. - Do not drive a car or operate machinery until the day after the procedure. - Do not make any important decisions or sign important papers in 24 hours after the procedure. Following Day: - Return to full activity which may include returning to work/school. Diet Start your diet with liquids and light foods (jello, soup, juice, toast). Then eat your usual diet if not nauseated. Treatment For Common After Affects For mild abdominal pain, bloating, or excessive gas: - Rest - Eat lightly - Lie on right side Follow-Up Information Follow-up with Dr. Nolberto Maurice as scheduled Anesthesia Information What You Should Know You have had a procedure that required some medicine to reduce anxiety and discomfort. This treatment is called moderate sedation. After receiving the treatment, you may be sleepy, but you will be able to breathe on your own. The effects of the treatment may last for several hours. Follow these instructions along with Activity/Diet recommendations noted above: * Do NOT do anything where dizziness or clumsiness would be dangerous. * Rest quietly at home today, then you can be up and about tomorrow. * Have a responsible person stay with you the rest of today. * You may have had an I.V. today. If so, you may take the dressing off later today. Recommendations Call your doctor if: * Trouble breathing * Continuous vomiting for more than 24 hours * Temperature above 101 degrees * Severe abdominal pain or bloating * Pain not relieved by pain medicine ordered * There is increased drainage or redness from any incision * A large amount of rectal bleeding greater than 2-3 tablespoons. (If you had a polyp/s removed or have hemorrhoids, a small amount of blood - from the rectum is to be expected.) * You have any unanswered questions or concerns. IN THE EVENT OF A SERIOUS EMERGENCY, GO TO THE NEAREST EMERGENCY ROOM Your discharge instructions were prepared by provider Shaq Olson. Patient Instructions Signature Page Ramone Sun Patient (or Guardian) Signature/Date: I have read and understand the instructions given to me by my caregivers. Caregiver/RN/Doctor Signature/Date: The above-named patient and/or guardian has received patient instructions on this date. + Original Patient Signature Page (only) stays with chart. Please make copy for patient.
[2018-05-02 15:12] VITALS: BP 127/90; PULSE 54; O2SAT 95
--- NOTE | 2018-05-02 15:18 | GI REPORT ---
Patient Name: Ramone Sun Procedure Date: 05/02/2018 2:09 PM Date of : 1955 Admit Type: Outpatient Age: 62 Gender: Male Attending MD: Shaq Olson DO Procedure: Upper GI endoscopy Providers: Shaq Olson DO Referring MD: Nolberto Maurice Indications: Follow-up of Valdez's esophagus Medicines: Monitored Anesthesia Care Complications: No immediate complications. Estimated Blood Loss: Estimated blood loss: none. Procedure: Pre-Anesthesia Assessment: - Prior to the procedure, a History and Physical was performed, and patient medications and allergies were reviewed. The patient's tolerance of previous anesthesia was also reviewed. The risks and benefits of the procedure and the sedation options and risks were discussed with the patient. All questions were answered, and informed consent was obtained. Prior Anticoagulants: The patient has taken aspirin, last dose was 5 days prior to procedure. ASA Grade Assessment: III - A patient with severe systemic disease. After reviewing the risks and benefits, the patient was deemed in satisfactory condition to undergo the procedure. After obtaining informed consent, the endoscope was passed under direct vision. Throughout the procedure, the patient's blood pressure, pulse, and oxygen saturations were monitored continuously. The scope was introduced through the mouth, and advanced to the second part of duodenum. The upper GI endoscopy was accomplished without difficulty. The patient tolerated the procedure well. Findings: There were esophageal mucosal changes consistent with short-segment Valdez's esophagus present at the gastroesophageal junction. The maximum longitudinal extent of these mucosal changes was 2 cm in length. Mucosa was biopsied with a cold forceps for histology. One specimen bottle was sent to pathology. One non-bleeding superficial gastric ulcer with no stigmata of bleeding was found in the gastric antrum. The lesion was 5 mm in largest dimension. Biopsies were taken with a cold forceps for Helicobacter pylori testing. The examined duodenum was normal. 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 Biopsied. - Non-bleeding gastric ulcer with no stigmata of bleeding. Biopsied. - Normal examined duodenum. Recommendation: - Resume previous diet. - Continue present medications. - Await pathology results. - Return to primary care physician as previously scheduled. Shaq Olson DO 05/02/2018 3:17:56 PM This report has been signed electronically. Note Initiated On: 05/02/2018 2:09 PM Number of Addenda: 0 I attest to the content of the Intraoperative Record and orders documented therein, exceptions below {[id number]}
--- NOTE | 2018-05-02 15:28 | Anesthesiology Progress Note ---
Anesthesia Post Op Note Date & Time May 02, 2018 at 15:28 Vital Signs Pain Intensity: 0 Vital Signs Past 12 Hours Date Time Temp Pulse Resp B/P (MAP) Pulse Ox O2 Delivery O2 Flow Rate FiO2 05/02/18 15:12 54 18 127/90 (102) 95 Room Air 05/02/18 15:00 55 18 125/75 (92) 95 Room Air 05/02/18 14:45 55 18 127/66 (86) 98 Nasal Cannula 3 05/02/18 13:43 36.8 56 16 164/98 (120) 96 Room Air Notes Mental Status: alert / awake / arousable, participated in evaluation Pt Amnestic to Procedure: Yes Nausea / Vomiting: adequately controlled Pain: adequately controlled Airway Patency, RR, SpO2: stable & adequate BP & HR: stable & adequate Hydration State: stable & adequate Anesthetic Complications: no major complications apparent
== END | disposition home or self-care (01) ==
LOC: C.GI 12:59
PROVIDERS: ATTEND Internal Medicine
DX: Z09 Encounter for follow-up examination after completed treatment for conditions other than malignant neoplasm (principal); K25.9 Gastric ulcer, unspecified as acute or chronic, without hemorrhage or perforation; K29.50 Unspecified chronic gastritis without bleeding; K20.9 Esophagitis, unspecified; E78.00 Pure hypercholesterolemia, unspecified; I10 Essential (primary) hypertension; Z79.52 Long term (current) use of systemic steroids; Z87.891 Personal history of nicotine dependence; Z79.899 Other long term (current) drug therapy; Z79.84 Long term (current) use of oral hypoglycemic drugs; Z79.82 Long term (current) use of aspirin; I25.10 Atherosclerotic heart disease of native coronary artery without angina pectoris; E11.9 Type 2 diabetes mellitus without complications; E66.9 Obesity, unspecified; Z68.38 Body mass index [BMI] 38.0-38.9, adult